=== PATIENT | female | born 1965 | race American Indian/Alaskan Native ===

== ENCOUNTER 2016-09-23 18:25 | Emergency (ER) | payer BC, MEDICAID ==
[2016-09-23 19:40] LABS: Bilirubin,Urine NEG (Negative); Blood,Urine MOD (Negative); Ketones,Urine TR mg/dL (Negative); Leukocyte Esterase,Urine NEG (Negative); Mucus,Urine FEW /HPF; Nitrite,Urine NEG (Negative); Protein,Urine <15 mg/dL mg/dL (Negative); Urobilinogen,Urine < 2.0 mg/dL (<2.0); WBC,Urine < 1.0 /HPF (0.0-6.0)
[2016-09-23 20:47] LABS: Red Cell Distribution Width 14.8 % (13.2-15.2)
[2016-09-23 20:50] LABS: Basophils % (Auto) 1.9 % (0.0-1.8); Eosinophils % (Auto) 1.1 % (0.0-4.3); Hematocrit 41.6 % (30.3-42.9); Hemoglobin 13.6 gm/dl (10.1-14.3); Mean Corpuscular HGB Conc 33 % (30-34); Mean Corpuscular Hemoglobin 27 pg (28-32); Mean Corpuscular Volume 84 fl (79-97); Platelet Count 256 K/mm3 (140-440); Red Blood Count 4.98 M/mm3 (3.65-5.03); White Blood Count 6.3 K/mm3 (4.5-11.0)
[2016-09-23 22:55] LABS: Anisocytosis 1+; Basophils % (Manual) 0 % (0.0-1.8); Blastocytes % (Manual) 0 %
[2016-09-23 22:59] LABS: Diff Status Complete; Platelet Estimate Consistent w Auto
--- NOTE | 2016-09-24 02:38 | Emergency Department Report ---
HPI - General Chief Complaint: Vaginal Bleeding Time Seen by Provider: 09/24/16 01:57 - HPI HPI: This is a 51-year-old Afro-[place] female presents the emergency department with the complaint of a 3-4 day history of some cold symptoms including nasal congestion, coughing, sneezing. Patient is also here to evaluate for vaginal bleeding and possible . The patient had a tubal ligation reversal about 5 years ago with the intent on conception. She had her last menstrual period on July 13. When she missed her next menstrual cycle, she had a positive home test. She then started developing some of the symptoms of such as sore breasts, back pains, nausea. Upon waking up this morning, the patient says that she noticed some pink bleeding that became more moderate towards midday. She also had some lower abdominal/pelvic discomfort. Her [employer] is Dr. Kyaw Little but she has not seen him yet regarding this and her symptoms. The patient, without this possible , is with one stillbirth and one . ED Past Medical Hx - Past Medical History Previous Medical History?: Yes Hx Hypertension: Yes Hx Diabetes: No Hx Deep Vein Thrombosis: No Hx Renal Disease: No Hx Sickle Cell Disease: No Hx Seizures: No Hx Asthma: No Additional medical history: Vaginal delivery x 5 - Surgical History Past Surgical History?: No - Social History Smoking Status: Never Smoker Substance Use Type: Prescribed - Medications Home Medications: Home Medications Medication Instructions Recorded Confirmed Last Taken Type Labetalol [Normodyne TAB] 200 mg PO BID 11/16/13 11/16/13 11/16/13 11:00 History Methyldopa [Methyldopa] 500 mg PO BID 11/16/13 11/16/13 11/16/13 11:00 History ED Review of Systems ROS: Stated complaint: ABD PAIN /BLEEDING /LMP Other details as noted in HPI Comment: All other systems reviewed and negative Constitutional: denies: chills, fever Eyes: denies: eye pain, eye discharge, vision change ENT: congestion. denies: throat pain Respiratory: cough. denies: shortness of breath Cardiovascular: denies: chest pain, palpitations Gastrointestinal: abdominal pain. denies: nausea, vomiting Genitourinary: other (vaginal bleeding). denies: dysuria, discharge Musculoskeletal: denies: back pain, joint swelling, arthralgia Skin: denies: rash, lesions Neurological: denies: headache, weakness, paresthesias Physical Exam - Physical Exam Vital Signs: Vital Signs 09/23/16 18:31 Temperature 98.3 F Pulse Rate 103 H Respiratory 20 Rate Blood Pressure 137/94 O2 Sat by Pulse 100 Oximetry Physical Exam: GENERAL: The patient is well-developed well-nourished. HEENT: Normocephalic. Atraumatic. Extraocular motions are intact. Patient has moist mucous membranes. Pupils equal reactive to light bilaterally. NECK: Supple. Trachea is midline. CHEST/LUNGS: Clear to auscultation. There is no respiratory distress noted. HEART/CARDIOVASCULAR: Regular. There is no tachycardia. There is no gallop rub or murmur. ABDOMEN: Abdomen is soft, nontender. No reproducible pain. No guarding rebound tenderness. Patient has normal bowel sounds. There is no abdominal distention. SKIN: Skin is warm and dry. NEURO: The patient is awake, alert, and oriented. The patient is cooperative. The patient has no focal neurologic deficits. The patient has normal speech. MUSCULOSKELETAL: There is no tenderness or deformity. There is no limitation range of motion. There is no evidence of acute injury. ED Course Vital Signs 09/23/16 18:31 Temperature 98.3 F Pulse Rate 103 H Respiratory 20 Rate Blood Pressure 137/94 O2 Sat by Pulse 100 Oximetry ED Medical Decision Making - Lab Data Result diagrams: 09/23/16 20:16 - Radiology Data Radiology results: report reviewed Pelvic ultrasound shows multiple uterine fibroids. There is endometrial hyperplasia. There is no endometrial fluid. Normal right ovary. Left ovary is not seen. - Medical Decision Making 51-year-old female presents the emergency department mostly for evaluation of possible with some recent vaginal bleeding and abdominal cramping. However the patient does not appear to be as her beta hCG level is negative and/or 0. This would also be that if the patient was , the miscarriage did not happen in the last few days. The bleeding could be from fibroids or essential uterine bleeding. A transvaginal ultrasound was done that did not show any intrauterine . There are multiple fibroids, endometrial hyperplasia but no fluid and no . Patient was reevaluated and says she is not having any is comfort or any further bleeding at this time. The left ovary was not seen on ultrasound but the patient says that this is happened in the past with fibroids blocking the ovary. Patient did not have any Doppler but she is not currently having any pain, there is no leukocytosis, it appears low suspicion for torsion, and if there was Doppler the left ovary still would not be visualized. Patient did not want to go back for a second attempt at the ultrasound to visualize the ovary. She has good follow-up with Dr. Little and will do so on Sunday. She'll return to the ER with any worsening of her symptoms or any acute distress. - Differential Diagnosis , miscarriage, discomfort or uterine bleeding, fibroids Critical Care Time: No Critical care attestation.: If time is entered above; I have spent that time in minutes in the direct care of this critically ill patient, excluding procedure time. ED Disposition Clinical Impression: Dysfunctional uterine bleeding, Endometrial hyperplasia Fibroids Qualifiers: Uterine leiomyoma location: unspecified location Qualified Code(s): D25.9 - Leiomyoma of uterus, unspecified Disposition: DISCHARGED TO HOME OR SELFCARE Is pt being admited?: No Condition: Stable Instructions: Dysfunctional Uterine Bleeding (ED), Uterine Fibroids (ED) Additional Instructions: Please follow-up with your [employer] in the next few days. Return to the emergency department with any worsening of your symptoms or any acute distress. Referrals: PRIMARY CARE, [Primary Care Provider] - 3-5 Days JARROD LITTLE MD [Staff Physician] - 3-5 Days Time of Disposition: 04:53
--- NOTE | 2016-09-24 04:28 | Ultrasound Report ---
FINAL REPORT PROCEDURE: US PELVIC transvaginal TECHNIQUE: Real-time transvaginal sonography in multiple planes of pelvis was performed with image documentation. This examination was performed without Doppler. Vascular abnormalities, including ovarian torsion, will not be detectable without Doppler evaluation. HISTORY: vag bleed COMPARISON: No prior studies are available for comparison. FINDINGS: UTERUS Size: 11.9 x 7.3 x 7.6 cm. Endometrial thickness: 14.6 mm. Orientation: anteverted. Cervix: Normal. Fibroids/masses: There are least 4 discrete intramural fibroids. The largest measures 4 centimeters.. RIGHT Ovary: 2.8 x 1.7 x 1.7 cm. Appearance: Normal. LEFT Ovary: Not identified. Pelvic fluid: None. IMPRESSION: Multiple uterine fibroids. There is endometrial hyperplasia. There is no endometrial fluid. Normal right ovary. Left ovary not seen.
--- NOTE | 2016-09-24 04:28 | Ultrasound Report ---
FINAL REPORT PROCEDURE: US PELVIC COMPLETE TECHNIQUE: Real-time transabdominal sonography in multiple planes of pelvis was performed with image documentation. This examination was performed without Doppler. Vascular abnormalities, including ovarian torsion, will not be detectable without Doppler evaluation. CPT 47099 HISTORY: vag bleed COMPARISON: No prior studies are available for comparison. FINDINGS: UTERUS Size: 11.9 x 7.3 x 7.6 cm. Endometrial thickness: 14.6 mm. Orientation: anteverted. Cervix: Normal. Fibroids/masses: There are least 4 discrete intramural fibroids. The largest measures 4 centimeters.. RIGHT Ovary: 2.8 x 1.7 x 1.7 cm. Appearance: Normal. LEFT Ovary: Not identified. Pelvic fluid: None. IMPRESSION: Multiple uterine fibroids. There is endometrial hyperplasia. There is no endometrial fluid. Normal right ovary. Left ovary not seen.
[2016-09-24 05:29] VITALS: BP 125/74
== END 2016-09-24 05:30 | disposition home or self-care (01) ==
LOC: ED 18:25
DX: N93.8 Other specified abnormal uterine and vaginal bleeding (principal); N85.00 Endometrial hyperplasia, unspecified; D25.9 Leiomyoma of uterus, unspecified; I10 Essential (primary) hypertension
CPT/HCPCS: 36415; 76830; 76856; 81001; 84702; 85007; 85025; 86850; 86900; 86901